=== PATIENT | female | born 1940 | race Caucasian/White ===

== ENCOUNTER 2025-07-11 08:42 | Outpatient (AMB) | payer OTHER, MEDICARE, SELFPAY ==
--- NOTE | 2025-07-11 08:55 | MHC.OFFVIS ---
Intake Visit Reasons: 1 yr follow up Allergies No Known Allergies Allergy (Verified 07/11/25 08:56) Medication List - Last Reconciled 07/11/25 by Carlota Carreon CNP amlodipine 5 mg PO DAILY atorvastatin 10 mg PO DAILY cvojjsdgvr-tdowcbd-injgpila 50-325-40 mg caps PO Q4H PRN hydrocortisone 2.5% appl topical omeprazole 40 mg PO DAILY sertraline 50 mg PO DAILY HPI Comments Details: She was doing okay. Migraines are under control, infrequent and only a few each year. 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 Takes Fiorinal and goes to sleep with good relief. Vision was okay, no changes. Mood was okay. Sleep was okay. Gets 1-3 migraines / year usually with a change of weather, usually relieved by a single Fiorinal. She has a long hx of migraine headaches with visual aura and occasional muscle tension type headache as well as depression. She gets left eye sparkles of lights and weird designs since April 2019. Diagnosed with NAION and was seeing [facility] every 6 months for many years. 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 Has eczema, following with dermatology. Gets monthly B12 injections. Had surgery for right ptosis in 11/2018 and left lower lid tuck and cataract and laser for the cataract. [facility] Medical History (Updated 07/11/25 @ 09:00 by Carlota Carreon CNP) Lumbar compression fracture Osteoporosis Hypertension Review of Systems Const Denies chills, Denies daytime sleepiness, Denies difficulty sleeping, Denies fatigue, Denies fever(s), Denies frequent falls, Reports headache(s), Denies increased appetite, Denies poor appetite, Denies snoring, Denies weakness, Denies weight gain and Denies weight loss Eyes Denies loss of vision ENT Denies vertigo, Denies dizziness, Reports headache(s) and Denies neck pain Card Denies chest pain at rest, Denies chest pain with activity, Denies syncope, Denies leg edema, Denies palpitations, Denies dyspnea and Denies dyspnea on exertion Resp Denies cough, Denies dyspnea, Denies dyspnea on exertion and Denies snoring GI Denies abdominal pain, Denies constipation, Denies heartburn, Denies diarrhea and Denies nausea Denies urinary frequency, Denies urinary incontinence and Denies urinary urgency Musc Denies abnormal gait, Reports back pain, Denies myalgias, Denies arthralgias, Denies neck pain, Denies numbness and Denies tingling Neuro Denies abnormal gait, Denies vertigo, Denies dizziness, Denies syncope, Denies frequent falls, Reports headache(s), Denies lack of coordination, Denies loss of vision, Denies memory loss, Denies numbness, Denies Other visual disturbances, Denies restless legs, Denies seizure-like activity, Denies tingling, Denies paresthesias, Denies tremor(s) and Denies weakness Psych Denies anxiety, Denies depression, Denies auditory hallucinations, Denies memory loss and Denies visual hallucinations Endo Denies fatigue and Denies palpitations Physical Exam Const Other: General Appearance:? normal, in no acute distress. Heart:? S1, S2 normal, no murmurs. Lungs:? clear anteriorly and posteriorly. Musculoskeletal:? normal. Extremities:? no edema. Psych:? alert, oriented, cognitive function intact, cooperative with exam. Neuro Other: Abnormal Neurological Findings:?none.? Mental Status: alert and oriented X 3. Normal attention, orientation, memory, and affect. Cranial Nerves: Pupils are equal, round, and reactive to light. External ocular muscles are intact. Visual kumar are full, no ptosis. Face is symmetrical, no facial weakness or droop. Facial sensations are normal. Tongue protrudes in midline. Palate elevates symmetrically. Shoulder shrugging is normal Motor Examination: Normal muscle tone, bulk and strength. No atrophy or fasciculations. No drift of the extended upper extremities. DTR 2+. Plantars are flexor. Sensory Exam: Normal light touch, temperature, pinprick, vibration, and joint-position sensations. Rhomberg sign is absent. Coordination: No ataxia. No titubation. Gait Exam: Within normal limits. Cerebellar Signs: Adcvrz-ow-wahl and dwfe-uw-qfmr is normal. Extrapyramidal System: No tremor, rigidity with normal facial expressions. No bradykinesia. No bradyphrenia. Normal arm swing and posture. No propulsion or retropulsion. Speech: Normal. Assessment & Plan Assessment & Plan (1) Migraine: Code(s): G43.909 - Migraine, unspecified, not intractable, without status migrainosus Category: Medical Qualifiers: Migraine type: unspecified Status migrainosus presence: without status migrainosus Intractability: not intractable Qualified Code(s): G43.909 - Migraine, unspecified, not intractable, without status migrainosus Plan: Continue tgxuadplkq-JLJ-hcxn (Fiorinal) 50-325-40mg 1 capsule as needed q4h for headache #20 for 30 days. Medications: New qpwrpnqmyk-xauuzgi-mqpuvbxt 50-325-40 mg 1 cap PO Q4H PRN 20 caps 1RF headache 30 days Coding Level of Care Code Est Pt Level 4 (01952) Diagnoses Migraine without status migrainosus, not intractable, unspecified migraine type G43.909 Migraine type: unspecified Status migrainosus presence: without status migrainosus Intractability: not intractable
--- OUTSIDE RECORDS SUMMARY | 2025-07-11 09:13 | XMS_ITS | Clinical Summary ---
Author Organization [facility] Address [address] [place] [place], [place] [address] [place] [address] Phone Care Team Providers Care Bacon Slicer Name Role Phone Regis Moreno MD Unavailable [phone] Michelle Emery MD Primary Care Provider Allergies No known active allergies Medications loteprednol (ALREX) 0.2 % DrpS Place 1 drop into each eye 4 (four) times a day. Active atorvastatin (LIPITOR) 10 MG tablet Take 10 mg by mouth daily. Active omeprazole (PRILOSEC) 10 MG capsule Take 10 mg by mouth daily. Active amLODIPine (NORVASC) 10 MG tablet Take 10 mg by mouth daily. Active sertraline (ZOLOFT) 100 MG tablet Take 100 mg by mouth daily. Active cholecalciferol (VITAMIN D3) 1,000 unit tablet Take 1,000 Units by mouth daily. Active loratadine (CLARITIN) 10 mg tablet Take 10 mg by mouth daily. Active ZIOPTAN, PF, 0.0015 % Dpet 11/28/2021 Activ e Active Problems Problem Noted Date Diagnosed Date Uncoded Problem 03/26/2014 Overview (11/09/2014): Pigmented nevus Family History Medical History Relation Comments Macular degeneration Maternal Aunt Diabetes Mother Hypertension Mother Macular degeneration Mother Glaucoma Sister Blindness Neg Hx Relation Status Comments Maternal Aunt Mother Sister Social History Tobacco Use Types Packs/Day Years Used Date Smoking Tobacco: Never Smokeless Tobacco: Never Alcohol Use Standard Drinks/Week Comments Yes 1 (1 standard drink = 0.6 oz pur e alcohol) Education Answer Date Recorded Are you interested in more education? Not on chalo e 01/15/2023 Are you concerned about learning? Not on file 01/15/2023 No 01/15/2023 No 01/15/2023 Digital Access Answer Date Recorded No 02/15/2023 No 02/15/2023 No 02/15/2023 Reliable internet access at home? Not on file 02/15/2023 Device with a working camera? Not on file Comments Unknown Sex and Gender Information Value Date Recorded Sex Assigned at Choose not to disclose 9:03 AM EDT Legal Sex Female 9:28 AM EDT Gender Identity Choose not to disclose 9:03 AM EDT Sexual Orientation Choose not to disclose 2023 9:03 AM EDT Plan of Treatment Health Maintenance Due Date Last Done Comments DEPRESSION SCREENING 1952 OSTEOPOROSIS SCREENING INITIAL (ONE-TIME) 2007 RSV VACCINE (1 - 1-dose 75+ series) 2017 Adult Td,Tdap Booster 03/17/2024 03/17/2014, 007 INFLUENZA VACCINE (#1) 2025 , 08/14/2022, 06/06/2020, Additional history exists COVID-19 VACCINE ( season) 2025 PNEUMOCOCCAL VACCINES (50+ years) Completed 04/22/2015, 06/23/2007 ZOSTER VACCINES Completed 04/12/2019, 01/12/2019 HEPATITIS A VACCINES Aged Out No long er eligible based on patient's age to complete this topic HIB VACCINES Aged Out No longer eligi ble based on patient's age to complete this topic MENINGOCOCCAL VACCINES (ACWY) Aged Out No longer eligible based on patient's age to complete this topic MENINGOCOCCAL VACCINES (B) Aged Out N o longer eligible based on patient's age to complete this topic Medical Devices Not on file Insurance MEDICARE REPLACEMENT MEDICARE REPLACEMENT MEDICARE REPLACEMENT MEDICARE REPLACEMENT MEDICARE REPLACEMENT MEDICARE REPLACEMENT MEDICARE REPLACEMENT MEDICARE REPLACEMENT MEDICARE REPLACEMENT Care Teams Bacon Slicer Relationship Specialty Start Date [place] [address] PCP - General Internal Medicine 04/12/24 Regis Moreno MD [address] [place] [id number] Ophthalmology 7/27/17 Additional Source Comments The information contained in this document represents components of the legal health record. It is not the complete legal health record.[facility]
== END 2025-07-11 09:15 | disposition home or self-care (01) ==
LOC: HO.HSM 08:42
PROVIDERS: PCP Internal Medicine; Referring Provider Internal Medicine; Visit Provider Registered Nurse
DX: G43.909 Migraine, unspecified, not intractable, without status migrainosus (principal)
CPT/HCPCS: 99214